=== PATIENT | male | born 1960 | race Caucasian/White ===

== ENCOUNTER 2017-02-16 09:40 | Day surgery (SDC) | payer OTHER ==
[~2017-02-16] VITALS: Ht 167.6 cm; Wt 90.9 kg
[~2017-02-16 09:40] MED LIST: ASPI81TA50 PO; ATOR40TA78 PO; CITA10TA4 PO; CITA40TA12 PO; CLOP75TA PO; FENO145T13 PO; LISI-167 PO; METO50TA4 PO
[2017-02-16] MEDS ORDERED: SODIUM CHLORIDE 0.9% 1,000 ML IV SCH (09:56)
[2017-02-16] MEDS ORDERED: ONDANSETRON 2MG/ML, 2ML IVPush PRN (10:00)
[2017-02-16] MEDS ORDERED: BISACODYL 10 MG SUPP PR PRN (10:00)
[2017-02-16] MEDS ORDERED: ACETAMINOPHEN 325 MG TABLET PO PRN (10:00)
[2017-02-16] MEDS ORDERED: ASPIRIN 325 MG TABLET EC PO ONE (10:00)
[2017-02-16] MEDS ORDERED: ZOLPIDEM 5MG TABLET PO PRN (10:00)
[2017-02-16] MEDS ORDERED: BISACODYL 5 MG EC TABLET PO PRN (10:00)
[2017-02-16 10:05] VITALS: BP 127/75
[2017-02-16] MEDS ORDERED: METO50TA4 PO (10:27)
[2017-02-16] MEDS ORDERED: SERT50TA5 PO (10:27)
[2017-02-16 10:54] LABS: BLOOD UREA NITROGEN 11 mg/dL (7-18)
[2017-02-16] MEDS ORDERED: FENTANYL PF 100 MCG/2ML ONE (11:32)
[2017-02-16] MEDS ORDERED: MIDAZOLAM 1 MG/ML, 5ML ONE (11:32)
[2017-02-16] MEDS ORDERED: LIDOCAINE 2%, 20ML ONE (11:33)
== END 2017-02-16 16:30 ==
LOC: CACL 09:40
PROVIDERS: ATTEND Internal Medicine Cardiovascular Disease
DX: I25.10 Atherosclerotic heart disease of native coronary artery without angina pectoris (principal); I10 Essential (primary) hypertension; E78.5 Hyperlipidemia, unspecified; G47.30 Sleep apnea, unspecified; Z79.82 Long term (current) use of aspirin; Z95.1 Presence of aortocoronary bypass graft; Z79.01 Long term (current) use of anticoagulants; Z95.5 Presence of coronary angioplasty implant and graft
CPT/HCPCS: 36415; 80048; 85025; 85610; 85730; 93005; 93459; 99156; 99157; C1760; C1894; J2250; J3010; J3490; Q9967